=== PATIENT | male | born 1985 | race Caucasian/White ===

== ENCOUNTER 2023-03-12 15:54 | Emergency (ER) | payer BC, OTHER | END 2023-03-12 16:00 | disposition left against medical advice (07) | LOC: VM.ED 15:54 | DX: Z53.21 Procedure and treatment not carried out due to patient leaving prior to being seen by health care provider (principal) ==

== ENCOUNTER 2023-06-12 22:27 | Emergency (ER) | payer OTHER ==
[2023-06-12 23:07] VITALS: PULSE 64
[2023-06-12 23:12] LABS: BASOPHILS PERCENT AUTO 0.5 % (0.2-1.2); EOSINOPHILS ABSOLUTE AUTO 0.5 x10^3/uL (0.0-0.5); EOSINOPHILS PERCENT AUTO 5.3 % (0.0-4.0); HEMATOCRIT 43.1 % (40.0-52.0); HEMOGLOBIN 15.3 g/dL (14.0-18.0); IMMATURE GRAN ABSOLUTE AUTO 0.01 x10^3/uL (0.00-0.07); LYMPHOCYTES ABSOLUTE AUTO 2.9 x10^3/uL (1.0-4.8); MEAN CORPUSCULAR HEMOGLOBIN 30.1 pg (26.0-32.0); MEAN CORPUSCULAR HGB CONC 35.5 g/dL (32.0-36.0); MEAN CORPUSCULAR VOLUME 84.8 fL (78.0-93.0); MONOCYTES ABSOLUTE AUTO 0.8 x10^3/uL (0.0-0.8); MONOCYTES PERCENT AUTO 8.8 % (2.0-11.0); NEUTROPHILS ABSOLUTE AUTO 4.6 x10^3/uL (1.8-7.7); NEUTROPHILS PERCENT AUTO 52.3 % (50.0-80.0); PLATELET COUNT,PLT 199 x10^3/uL (130-400); RED BLOOD CELL COUNT 5.08 x10^6/uL (4.5-6.0); WHITE BLOOD CELL COUNT,WBC 8.7 x10^3/uL (4.0-10.0)
[2023-06-12 23:36] LABS: PROTHROMBIN TIME 10.6 SEC (9.5-12.2); PTT,PARTIAL THROMBOPLSTIN TIME 25.3 SEC (23.6-33.6)
[2023-06-12 23:38] LABS: A/G RATIO 1.16; ALANINE AMINOTRANSFERASE,ALT 64 U/L (16-63); ALBUMIN 3.7 g/dL (3.4-5.0); ALKALINE PHOSPHATASE 80 U/L (46-116); ASPARTATE AMNIOTRANSFERASE,AST 32 U/L (15-37); BILIRUBIN TOTAL 0.3 mg/dL (0.2-1.0); BLOOD UREA NITROGEN,BUN 16 mg/dL (7-18); CALCIUM 8.8 mg/dL (8.5-10.1); CARBON DIOXIDE,CO2 28 mmol/L (21-32); CHLORIDE,CL 104 mmol/L (98-107); CREATININE 1.3 mg/dL (0.70-1.30); EST CRCL DRUG DOSING (CG) 72.03 mL/min; GLUCOSE RANDOM 113 mg/dL (70-99); POTASSIUM,K 3.5 mmol/L (3.5-5.1); PROTEIN TOTAL,TP 6.9 g/dL (6.4-8.2); SODIUM,NA 141 mmol/L (136-145)
[2023-06-12 23:39] LABS: ANION GAP 12.5 mmol/L (5-15); C-REACTIVE PROTEIN < 0.50 mg/dL (<=0.50); ESTIMATED GFR 72 mL/min (>=60)
[2023-06-13] LABS: PRO B-TYPE NATRIUR PEPT,BNPPRO < 5 pg/mL (<=125)
[2023-06-13] MEDS ORDERED: Indomethacin 25 MG Cap PO ONE (00:01)
[2023-06-13] MEDS ORDERED: predniSONE 20 MG Tab PO ONE (00:02)
[2023-06-13 00:35] VITALS: BP 139/78
== END 2023-06-13 00:14 | disposition home or self-care (01) ==
LOC: VM.ED 22:27
DX: R07.89 Other chest pain (principal); Z79.899 Other long term (current) drug therapy
CPT/HCPCS: 36415; 71045; 80053; 83735; 83880; 84484; 85025; 85379; 85610; 85730; 86140; 93005; 93010; 99284; 99285; A9270-GY; J7512